=== PATIENT | male | born 1945 | race Caucasian/White ===

== ENCOUNTER 2018-03-18 11:42 | Emergency (ER) | payer OTHER, MEDICARE ==
--- NOTE | 2018-03-18 12:28 | ER Document Report ---
ED Extremity Problem, Upper - General Chief Complaint: Arm Pain Stated Complaint: ARM PAIN Time Seen by Provider: 03/18/18 12:12 Mode of Arrival: Ambulatory Notes: 74-year-old male presents to ED for injury to his left arm after he fell Saturday injuring this arm when he landed on a tree branch. He has bruising and swelling to his upper arm and elbow. He states [facility] and they [facility] him to [facility] emergency room for a x-ray. Patient is alert and oriented respirations regular and unlabored speaking in full sentences. TRAVEL OUTSIDE OF THE [place] IN LAST 30 DAYS: No - HPI Patient complains to provider of: Injury, Pain, Left, Arm, Elbow Onset: Other - Saturday Recent injury: Yes Where: Outdoors Quality of pain: Achy, Sharp Pain Level: 2 Context: Fall Associated symptoms: None Exacerbated by: Movement, Exertion Relieved by: Rest, Positioning Similar symptoms previously: No Recently seen / treated by doctor: Yes - [facility] to [facility] - Related Data Allergies/Adverse Reactions: No Known Allergies Allergy (Unverified 07/20/13 23:56) Past Medical History - General Information source: Patient - Social History Smoking Status: Never Smoker Cigarette use (# per day): No Chew tobacco use (# tins/day): No Smoking Education Provided: No Frequency of alcohol use: None Drug Abuse: None Family History: None Patient has suicidal ideation: No Patient has homicidal ideation: No - Past Medical History Cardiac Medical History: Reports: Hx Hypercholesterolemia, Hx Hypertension Pulmonary Medical History: Reports: None EENT Medical History: Reports: None Neurological Medical History: Reports: None Endocrine Medical History: Reports: Hx Diabetes Mellitus Type 2 Renal/ Medical History: Reports: None Malignancy Medical History: Reports None GI Medical History: Reports: None Musculoskeletal Medical History: Reports Hx Arthritis Skin Medical History: Reports None Psychiatric Medical History: Reports: None Traumatic Medical History: Reports: None Infectious Medical History: Reports: None Past Surgical History: Reports: Hx Pacemaker - Immunizations Immunizations up to date: Yes Hx Diphtheria, Pertussis, Tetanus Vaccination: Yes Review of Systems - Review of Systems Constitutional: No symptoms reported EENT: No symptoms reported Cardiovascular: No symptoms reported Respiratory: No symptoms reported Gastrointestinal: No symptoms reported Genitourinary: No symptoms reported Male Genitourinary: No symptoms reported Musculoskeletal: Other - Pain to the left upper arm and elbow after he fell landing on a tree limb Skin: No symptoms reported Hematologic/Lymphatic: No symptoms reported Neurological/Psychological: No symptoms reported -: Yes All other systems reviewed and negative Physical Exam - Vital signs Vitals: Temp Pulse Resp BP Pulse Ox 97.9 F 59 L 16 153/90 H 98 03/18/18 12:00 03/18/18 12:00 03/18/18 12:00 03/18/18 12:00 03/18/18 12:00 Interpretation: Normal - General General appearance: Appears well, Alert - HEENT Head: Normocephalic, Atraumatic Eyes: Normal Pupils: PERRL - Respiratory Respiratory status: No respiratory distress Chest status: Nontender Breath sounds: Normal Chest palpation: Normal - Cardiovascular Rhythm: Regular Heart sounds: Normal auscultation Murmur: No - Abdominal Inspection: Normal Distension: No distension Bowel sounds: Normal Tenderness: Nontender Organomegaly: No organomegaly - Back Back: Normal, Nontender - Extremities General upper extremity: Normal ROM, Normal temperature General lower extremity: Normal inspection, Nontender, Normal color, Normal ROM , Normal temperature, Normal weight bearing. No: Edel's sign Arm: Tender, Ecchymosis. No: Abrasion, Deformity, Instability, Laceration Elbow: Tender, Ecchymosis. No: Abrasion, Deformity, Dislocation, Instability, Joint effusion, Laceration, Limited ROM, Swollen bursa Forearm: Normal, Nontender Wrist: Normal, Nontender Hand: Normal, Nontender - Neurological Neuro grossly intact: Yes Cognition: Normal Orientation: AAOx4 Stambaugh Coma Scale Eye Opening: Spontaneous Stambaugh Coma Scale Verbal: Oriented Stambaugh Coma Scale Motor: Obeys Commands Stambaugh Coma Scale Total: 15 Speech: Normal Motor strength normal: LUE, RUE, LLE, RLE Sensory: Normal - Psychological Associated symptoms: Normal affect, Normal mood - Skin Skin Temperature: Warm Skin Moisture: Dry Skin Color: Normal, Ecchymosis Location of irregularity: Extremities Course - Re-evaluation Re-evalutation: 03/18/18 22:05 Just x-rays with patient and written report of x-rays given to patient. Discussed the x-rays with Dr. Schultz, she stated as long as he had close follow- up that it was okay not to get further studies. Patient stated that he would follow-up with his [facility] tomorrow and call orthopedics for follow-up. - Vital Signs Vital signs: Temp Pulse Resp BP Pulse Ox 98.1 F 61 16 153/87 H 95 03/18/18 14:45 03/18/18 14:45 03/18/18 14:45 03/18/18 14:45 03/18/18 14:45 - Diagnostic Test Radiology reviewed: Image reviewed, Reports reviewed Discharge - Discharge Clinical Impression: Injury of left elbow Qualifiers: Encounter type: initial encounter Qualified Code(s): S59.902A - Unspecified injury of left elbow, initial encounter Fall Qualifiers: Encounter type: initial encounter Qualified Code(s): W19.XXXA - Unspecified fall, initial encounter Condition: Stable Disposition: HOME, SELF-CARE Additional Instructions: Elbow Effusion Your elbow shows no sign of fracture. However, there is fluid (probably blood) within the elbow joint. This may be due to a subtle cartilage injury or sprain, but it may also be a sign of a hidden fracture at the elbow. The usual treatment is to immobilize the elbow, and treat it exactly as if it were broken. Then in a few days, the joint will be rechecked by the physician for evidence of a hidden fracture. This follow-up is important -- the elbow must be checked as often as necessary until the physician is sure there is no broken bone. You should call the doctor or return at once if the elbow or forearm becomes severely painful or swollen, or if you become numb in the arm or hand. Splint Pending Casting Your injury can't be casted until the swelling has subsided. Therefore, a temporary splint has been placed to protect the injury. Full use of an injured area is not possible in a splint. You should follow the doctor's instructions concerning rest, ice, and elevation of the injury. Never do anything which causes pain under the splint. Keep the splint on ALL THE TIME until you return for casting. If there is unexpected severe pain, or numbness, discoloration, or swelling beyond the splint, you should return at once. Sling as Treatment A sling has been applied to protect the injury. This is adequate immobilization for this type of injury -- no cast or brace is required. Keep the sling on at all times until instructed to remove it by the doctor. Even though no cast or splint is needed, you must use the sling. If you use the arm too soon, it may not heal properly! If necessary, the sling can be adjusted for comfort. Return if you are encountering problems with the sling. Ibuprofen Ibuprofen is an excellent, safe drug for pain control. In addition, it has potent antiinflammatory effects which are beneficial, especially in the treatment of injuries, arthritis, or tendonitis. It's best to take ibuprofen with food. Persons with ulcer disease or allergy to aspirin should notify their physician of this before taking ibuprofen. Take the medication exactly as prescribed. Don't take additional doses unless instructed to do so by your doctor. If you develop wheezing, shortness of breath, hives, faintness, stomach pain, vomiting, or dark black stools, return for re-evaluation at once. Ice & Elevation Apply ice packs frequently against the painful area. Many different schedules are recommended, such as "20 minutes on, 20 minutes off" or "one hour ice, two hours rest." If you need to work, you may need to go longer between ice treatments. You should plan to have the area ice packed AT LEAST one- fourth of the time. The ice should be applied over the wrap, tape, or splint, or over a layer of cloth -- not directly against the skin. Some ice bags have a built-in cloth and can be put directly on the skin. Your injured part should be elevated as much as possible over the next 48 hours. Try to keep the injury above the level of the heart. Avoid use of the injured area. Elevation and rest will decrease the swelling. FOLLOW-UP CARE: If you have been referred to a physician for follow-up care, call the physician s office for an appointment as you were instructed or within the next two days. If you experience worsening or a significant change in your symptoms, notify the physician immediately or return to the Emergency Department at any time for re-evaluation. Forms: Elevated Blood Pressure Referrals: ANGI STUART MD [Primary Care Provider] - Follow up tomorrow GENE BROWN MD [ACTIVE STAFF] - Follow up as needed
--- NOTE | 2018-03-18 13:44 | RADIOLOGY REPORT (SQ) ---
EXAM DESCRIPTION: ELBOW LEFT OVER 2 VIEWS COMPLETED DATE/TIME: 03/18/2018 1:27 pm REASON FOR STUDY: pain injury swelling COMPARISON: None. NUMBER OF VIEWS: Four views. TECHNIQUE: AP, lateral, and both oblique radiographic images acquired of the left elbow. LIMITATIONS: None. FINDINGS: MINERALIZATION: Normal. BONES: No definite acute fracture. JOINT: Small elbow joint effusion. SOFT TISSUES: Soft tissue swelling over the olecranon. OTHER: No other significant finding. IMPRESSION: No definite acute fracture of the left elbow. There is a probable small elbow joint eff usion, concerning for radiographically occult fracture of the left radial head or neck. Correlate fo r palpable point tenderness and consider immobilization and follow-up radiographs in 7 to 14 days to evaluate for interval fracture evolution, or alternately MRI to evaluate for marrow edema. TECHNICAL DOCUMENTATION: JOB ID: [id number] [employer]- All Rights Reserved Reading location - IP/workstation name: [email or web address]
--- NOTE | 2018-03-18 13:45 | RADIOLOGY REPORT (SQ) ---
EXAM DESCRIPTION: HUMERUS LEFT COMPLETED DATE/TIME: 03/18/2018 1:27 pm REASON FOR STUDY: pain injury swelling COMPARISON: None. NUMBER OF VIEWS: Two views. TECHNIQUE: Two radiographic images were acquired of the left humerus to include elbow and shoulder i n at least one projection. LIMITATIONS: None. FINDINGS: MINERALIZATION: Normal. BONES: No acute fracture or dislocation. No worrisome bone lesions. SOFT TISSUES: No obvious swelling or foreign body. 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 IMPRESSION: 1. No fracture dislocation of the left humerus. 2. 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 TECHNICAL DOCUMENTATION: JOB ID: [id number] [employer]- All Rights Reserved Reading location - IP/workstation name: [email or web address]
[2018-03-18 14:46] VITALS: BP 153/87
== END 2018-03-18 14:51 | disposition home or self-care (01) ==
LOC: ER 11:42
DX: S50.02XA Contusion of left elbow, initial encounter (principal); S40.022A Contusion of left upper arm, initial encounter; W00.0XXA Fall on same level due to ice and snow, initial encounter; I10 Essential (primary) hypertension; E11.9 Type 2 diabetes mellitus without complications
CPT/HCPCS: 99283